=== PATIENT | male | born 1980 | race Caucasian/White ===

== ENCOUNTER 2020-08-28 07:59 | Emergency (ER) | payer OTHER ==
[~2020-08-28] VITALS: Ht 177.8 cm; Wt 67.1 kg
--- NOTE | 2020-08-28 07:59 | NUR ---
PT BIB SELF C/O SUICIDAL IDEATION "I WANT TO OD ON PILLS AND DRUGS" PT IS AAOX4, NOT IN RESPIRATORY DISTRESS, V/S STABLE, KEPT RESTED AND COMFORTABLE. SITTER AT BEDSIDE. WILL CONTINUE TO MONITOR.
--- NOTE | 2020-08-28 08:17 | NUR ---
SEEN AND EXAMINED BY .
[2020-08-28] MEDS ORDERED: MIRTAZAPINE 15 MG TABLET PO ONE (08:30)
[2020-08-28 08:38] LABS: BILIRUBIN,URINE SMALL (NEGATIVE); COLOR,URINE YELLOW (YELLOW); LEUKOCYTE ESTERASE ,URINE Negative (NEGATIVE); NITRITE, URINE Negative (NEGATIVE); PH,URINE 5.5 (5.0-8.0); PROTEIN,URINE 30 mg/dl (NEGATIVE); UGLUCOSE Negative (NEGATIVE); UROBILINOGEN,URINE 0.2 EU/dL (0.2)
[2020-08-28] MEDS ORDERED: BUPROPION XL 150 MG TAB.ER.24 PO ONE (08:41)
[2020-08-28] MEDS ORDERED: MIRTAZAPINE 15 MG TABLET ONE (08:42)
[2020-08-28 08:43] LABS: BACTERIA,URINE None seen /HPF (None Seen); MUCUS,URINE Few /LPF (None Seen); RBC,URINE 0-2 /HPF (0-2); SQUAMOUS EPITHELIAL CELL,UR Few /HPF (None Seen); URINE AMORPHOUS URATE Few /HPF (None Seen); WBC,URINE 0-2 /HPF (0-3)
[2020-08-28 08:44] LABS: BASOPHILS % (AUTO) 0.5 % (0.0-2.0); EOSINOPHILS % (AUTO) 2.8 % (0.0-6.0); HEMATOCRIT 42 % (39-51); HEMOGLOBIN 14.2 g/dL (13.5-17.5); LYMPHOCYTES # (AUTO) 1.4 /CMM (0.8-4.8); LYMPHOCYTES % (AUTO) 21.5 % (20.0-44.0); MEAN CORPUSCULAR HGB CONC 34 g/dl (31.0-36.0); MEAN CORPUSCULAR VOLUME 88 fL (80-96); MONOCYTES % (AUTO) 15.1 % (2.0-12.0); NEUTROPHILS # (AUTO) 3.9 /CMM (1.8-8.9); NEUTROPHILS % (AUTO) 60.1 % (43.0-81.0); PLATELET COUNT (AUTO) 376 /CMM (150-450); RED BLOOD CELL COUNT(AUTO) 4.73 MIL/uL (4.5-6.0); WHITE BLOOD COUNT (AUTO) 6.5 K/uL (4.3-11.0)
[2020-08-28] MEDS ORDERED: LANS30CA56 PO (08:56)
[2020-08-28 08:59] LABS: CALCIUM, SERUM 8.9 mg/dL (8.5-10.1); CARBON DIOXIDE 27 mmol/L (21-32); CHLORIDE 96 mmol/L (98-107); CREATININE 1.4 mg/dL (0.6-1.3); GLUCOSE 97 mg/dL (74-106); POTASSIUM 3.9 mmol/L (3.5-5.1); SODIUM SERUM 135 mmol/L (136-145); UREA NITROGEN, BLOOD 52 mg/dL (7-18)
[2020-08-28] MEDS ORDERED: buPROPion SR 150 MG TABLET.ER PO SCH (09:00)
[2020-08-28 09:05] LABS: ALANINE AMINOTRANSFERASE 43 U/L (12-78); ALBUMIN 4.2 g/dL (3.4-5.0); ALCOHOL, BLOOD < 3 mg/dL (0-0); ALKALINE PHOSPHATASE 67 U/L (46-116); ASPARTATE AMINOTRANSFERASE 75 U/L (15-37); BILIRUBIN,DIRECT 0.2 mg/dL (0.0-0.2); BILIRUBIN,TOTAL 1.3 mg/dL (0.2-1.0); TOTAL PROTEIN, SERUM 8.1 g/dL (6.4-8.2)
[2020-08-28 09:10] LABS: ACETAMINOPHEN 0 ug/ml (10-30)
[2020-08-28] MEDS ORDERED: IV NS 0.9% 1,000 ML BAG IV ONE (09:30)
--- NOTE | 2020-08-28 10:14 | NUR ---
THE PATIENT NAPING. IN NO APPARENT DISTRESS.
--- NOTE | 2020-08-28 11:08 | NUR ---
PACKET FAXED TO ELIN TRUJILLO
--- NOTE | 2020-08-28 12:33 | NUR ---
"Auto Service Instructor Consult: financial services intern consult requested for suicidal ideation. Per chart, patient was brought in by self on 08/28/20 for suicidal ideation with a plan to OD on drugs or pills. Patient is a 40-year-old, male. SW met with the patient at his bedside on the emergency department. Patient was alert and oriented x4. Patient was resting. Per ED staff, clinicals have been faxed by ED medical staff credentialing coordinator to [facility] for voluntary psychiatric placement. Patient is currently homeless and stated that he was at a sober living facility at the beginning of this month. Patient stated that he requested to go to [facility] for current suicidal ideation with a plan to overdose on drugs or pills. Patient stated that he was at [facility] one week ago. SW discussed social support with the patient and patient stated that he has some social support from his family. Patient verbalized that he is independent with his ADLs. SW asked the patient about any sources of income and the patient stated that he receives food stamps and [employer]. Patient stated that he has a history of Depression and Anxiety and is taking Wellbutrin and Remeron. Patient denies hallucinations or delusions. Patient stated that he has not taken his prescribed medications regularly due to his substance use. SW assessed patients history of substance use and patient stated that he has a history of alcohol and amphetamine use. Patient stated that he drinks alcohol daily (1-2 pints of whiskey) and 1/2 gram of amphetamine daily. SW offered homeless and substance use resource to the patient. Patient accepted the resources and thanked SW. SW asked patient to sign the homeless waiver. Patient signed the waiver and filed it in the patients chart. Discharge plans discussed with the patient, and patient agrees to voluntary psychiatric hospitalization at [facility] if accepted. PLAN: Patient plans to be discharged to [facility], if accepted. ED medical staff credentialing coordinator have faxed clinicals to [facility]. No further SS interventions at this time, however SW will remain available as needed. Year-round shelters: [place] [address] [place] [address] ; [employer] [facility] [place] [address] [place] [address]; [place] [facility] [id number] [facility]. [facility] [address] SPA 4 | [facility] Provider: First to Serve Address: [address], [place], [address] # of Beds: 48 Population Served: [facility] Provider: First to Serve Address: [address] [facility], [address] # of Beds: 73 Population Served: [facility] 6 | [facility] Provider: [facility] at Last Address: [address] [facility], [address] # of Beds: 63 Population Served: [facility] 3 | [facility] Provider: [facility] [place] Address: [address] [facility] [address] # of Beds: 75 Population Served: [facility] 8 | [facility] Provider: [facility] [place] Address: [address] [facility] [address] # of Beds: 80 Population Served: [facility] 1 | [facility] Provider: [facility] [place] Address: [address] [place] [address], [address] # of Beds: 85 Population Served: [facility] 2 | [facility] Provider: [facility] Address: Confidential (please call for location) # of Beds: 52 Population Served: [facility] 4 | [facility] Provider: [facility] Address: [address] [facility], [address] # of Beds: 49 Population Served: [facility] Provider: [facility] To Serve Address: [address] [facility], [address] # of Beds: 27 Population Served: [facility] Hy[facility]: [facility]: [address] [place] ; [facility] [address] [facility] ; [facility] [address] . Food Resources: [place] [facility] at [facility]- [address] [place]; Meet Each Need with [facility] ([facility]) [address] [place]; [facility] [address] [facility]; [facility] [address] [place]. Mental Health resources provided: [facility] [address] [place], [place] [address] ; [facility] [address] [facility] [address], [place], [place] [id number] ; [facility] [address] [facility] [place], [place] [id number] ; [facility] [address] [place], [place] [id number] Healthcare Clinics: [facility] [address] [facility], [address] [place]. [place] ; [facility] [address] [facility] [address] [place] [address]; [facility] [address] [facility] [place] [address] [phone]) [phone] Counseling--Outpatient [facility] [address] [facility], [address] [place], [place] [id number] (Specializes in in-depth psychotherapy for emotional distress: anxiety, depression, interpersonal conflicts, life transitions, childhood abuse) PSYCHIATRIC OUTPATIENT SERVICES [facility] Partial Hospitalization and Intensive Outpatient Program (Managed Care and [place] Only) [address] [facility] [id number] [facility] Partial Hospitalization and Outpatient Program [address] [place] [address] [facility] Partial Hospitalization and Outpatient Program [address] [place], [place] [id number] [place] [facility] [address] [facility] [facility] [place] [address] [facility] Partial Hospitalization and Outpatient Program [address] [place], [place] [phone] Substance use resources provided included: [facility] Substance Abuse Self-Helpline (SAS) ; [facility] [address] [facility] [address] ; [facility] [address] [facility] [address] ; [facility] [address] [address] ; [facility] [address] [facility] [address] ; [facility] [address] [facility] [phone] ; [facility] [place]; [facility] [place]; [place] [facility]; Alcoholics Anonymous -[facility]"
--- NOTE | 2020-08-28 12:37 | NUR ---
PT ACCEPTED AT THE [facility] UNDER THE CARE OF DR DIAZ. PT GOING TO UNIT 2. CALL [phone] FOR REPORT
--- NOTE | 2020-08-28 12:37 | NUR ---
PER SOCAL INTAKE SENT PATIENT AFTER [id number]
--- NOTE | 2020-08-28 12:52 | NUR ---
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
--- NOTE | 2020-08-28 13:07 | NUR ---
REPORT GIVEN TO DOMENICA HINDS FOR [facility] AT [facility]
--- NOTE | 2020-08-28 15:06 | NUR ---
REPORT GIVEN TO EMS FOR PT TRANSFER TO [facility].
[2020-08-28 15:07] VITALS: BP 114/62
== END 2020-08-28 15:14 ==
LOC: ER 07:59
DX: R45.851 Suicidal ideations (principal); E86.0 Dehydration; F32.9 Major depressive disorder, single episode, unspecified; F41.9 Anxiety disorder, unspecified; Z20.822 Contact with and (suspected) exposure to COVID-19; F15.90 Other stimulant use, unspecified, uncomplicated
CPT/HCPCS: 36415; 80048; 80076; 80299; 80307; 80320; 81001; 85025; 87426; 96360; 99285; C9803; J7030; G0480